=== PATIENT | male | born 1950 | race Caucasian/White ===

== ENCOUNTER 2022-03-29 09:29 | Day surgery (SDC) | payer MEDICARE, BC ==
[2022-03-24 09:50] LABS: BASOPHILS # (AUTO) 0.1 X10'3 (0-0.2); BASOPHILS % (AUTO) 0.9 % (0-1); EOSINOPHILS # (AUTO) 0.1 X10'3 (0-0.9); EOSINOPHILS % (AUTO) 1.7 % (0-6); HEMATOCRIT 47.9 % (42.0-52.0); HEMOGLOBIN 16.3 g/dl (14.0-17.9); LYMPHOCYTES # (AUTO) 1.4 X10'3 (1.1-4.8); LYMPHOCYTES % (AUTO) 18.5 % (21-51); MEAN CORPUSCULAR HEMOGLOBIN 31.9 PG (27.0-31.0); MEAN CORPUSCULAR VOLUME 93.9 FL (78-98); MEAN PLATELET VOLUME 7.9 FL (7.4-10.4); MONOCYTES # (AUTO) 0.7 X10'3 (0-0.9); MONOCYTES % (AUTO) 9.7 % (2-12); NEUTROPHILS # (AUTO) 5.2 X10'3 (1.8-7.7); NEUTROPHILS % (AUTO) 69.2 % (42-75); PLATELET COUNT 231 X10'3 (140-440); RED BLOOD COUNT 5.09 X10'6 (4.70-6.10); RED CELL DISTRIBUTION WIDTH 13.7 % (11.5-14.5); WHITE BLOOD COUNT 7.6 X10'3 (4.5-11.0)
[2022-03-24 09:58] LABS: ALBUMIN 4.2 G/DL (3.4-5.0); ANION GAP 9 (8-16); CALCIUM 9.5 MG/DL (8.5-10.1); CHLORIDE 103 MMOL/L (99-107); POTASSIUM 4.6 MMOL/L (3.5-5.1); SODIUM 140 MMOL/L (135-145); TOTAL CARBON DIOXIDE 28.4 MMOL/L (24-32); eGFR 66 ML/MIN
[2022-03-24 10:01] LABS: APTT 28 SECONDS (22-32); BLOOD UREA NITROGEN 18 MG/DL (7-18); BUN/CREATININE RATIO 16.4 (5.4-32.0); GLUCOSE 158 MG/DL (70-104)
[2022-03-29] VITALS (16 sets, daily range): BP systolic 92–139; BP diastolic 59–87
[~2022-03-29] VITALS: Ht 180.3 cm; Wt 143.2 kg
[2022-03-29] MEDS ORDERED: normal saline 1000ml 1,000 ML IV SCH (09:50)
[2022-03-29] MEDS ORDERED: MIDAZolam 1mg/ml 10ml vial IV ONE (09:50)
[2022-03-29] MEDS ORDERED: TRAZ150T78 PO (10:24)
[2022-03-29] MEDS ORDERED: ZOLP12.543 PO (10:24)
[2022-03-29] MEDS ORDERED: SOTA80TA73 PO (10:24)
[2022-03-29] MEDS ORDERED: SIMV10TA98 PO (10:24)
[2022-03-29] MEDS ORDERED: magnesium citrate PO (10:38)
[2022-03-29] MEDS ORDERED: HYLANDS LEG CRAMPS PO (10:38)
[2022-03-29] MEDS ORDERED: PHYT100T PO (10:38)
[2022-03-29] MEDS ORDERED: B VITAMINS PO (10:38)
[2022-03-29] MEDS ORDERED: Potassium Citrate PO (10:38)
[2022-03-29] MEDS ORDERED: Vitamin E PO (10:38)
[2022-03-29] MEDS ORDERED: MELA10TA2 PO (10:38)
[2022-03-29] MEDS ORDERED: CHRO1000 PO (10:38)
[2022-03-29] MEDS ORDERED: DIPH50CA40 PO (10:38)
[2022-03-29] MEDS ORDERED: MULT-1172 PO (10:38)
[2022-03-29] MEDS ORDERED: FISH OIL PO (10:38)
[2022-03-29] MEDS ORDERED: ACET-2615 PO (10:38)
[2022-03-29] MEDS ORDERED: GARL1000 PO (10:38)
[2022-03-29] MEDS ORDERED: ST.350CA PO (10:38)
[2022-03-29] MEDS ORDERED: APIX5TAB3 PO (10:38)
[2022-03-29] MEDS ORDERED: Vit D3 PO (10:38)
[2022-03-29] MEDS ORDERED: BETA1TAB19 PO (10:38)
[2022-03-29] MEDS ORDERED: VALERIAN PO (10:38)
[2022-03-29] MEDS ORDERED: ZINC50TA67 PO (10:38)
[2022-03-29] MEDS: fentaNYL/PF 50MCG/1 ML 2ML syringe IV ONE ×2 (13:34→13:40)
== END 2022-03-29 16:20 | disposition home or self-care (01) ==
LOC: SSTAY O 09:29
PROVIDERS: ATTEND Student in an Organized Health Care Education/Training Program
DX: I48.91 Unspecified atrial fibrillation (principal); G47.33 Obstructive sleep apnea (adult) (pediatric); Z79.899 Other long term (current) drug therapy; Z98.890 Other specified postprocedural states
CPT/HCPCS: 36415; 80048; 85025; 85610; 85730; 92960; 93005; J2250; J3010; J7030; A4620